=== PATIENT | female | born 1985 | race Caucasian/White ===

== ENCOUNTER 2017-07-19 10:11 | Inpatient (IN) | payer OTHER ==
[~2017-07-19] VITALS: Ht 154.9 cm; Wt 59.0 kg
[2017-07-19 15:22] LABS: ABSOLUTE BASOPHIL COUNT 0 /CUMM (0.0-0.2); ABSOLUTE EOSINOPHIL COUNT 0.1 /CUMM (0.0-0.7); ABSOLUTE GRANULOCYTE CT 8.1 /CUMM (1.4-6.5); ABSOLUTE LYMPH COUNT 2.9 /CUMM (1.2-3.4); ABSOLUTE MONOCYTE COUNT 0.8 /CUMM (0.10-0.60); BASOPHIL % 0.3 % (0.0-2.0); EOSINOPHIL % 0.5 % (0-5); GRANULOCYTE % 68.2 % (42.2-75.2); HEMATOCRIT 33.6 % (37-47); MEAN CORPUSCULAR HGB 29.3 PG (27.0-31.0); MEAN CORPUSCULAR VOLUME 88.6 FL (81.0-99.0); MEAN PLATELET VOLUME 9.3 FL (7.4-10.4); PLATELET COUNT 231 /CUMM (130-400); RBC DISTRIBUTION WIDTH 14.3 % (11.5-14.5); RED BLOOD CELL CT 3.79 /CUMM (4.20-5.40); WHITE BLOOD CELL COUNT 11.8 /CUMM (4.8-10.8)
--- NOTE | 2017-07-19 15:54 | History & Physical ---
General Information and HPI MD Statement: I have seen and personally examined DG SALCIDO and documented this H&P. The patient is a 31 year old female at [39] weeks and [2] days gestation who presented with a chief complaint of [CTXS]. Source of Information: patient Exam Limitations: no limitations History of Present Illness: 31yo, at 39 2/7wks, c/o ctxs since AM, getting closer and stronger. came to L+D for evaluation, initila exam was 2 cm dilated, then progress to 3cm, then 5 cm, pt admitted for labor. care started at 7 + wks, uncomplicated thus far. GBS negative Allergies/Medications Allergies: Coded Allergies: No Known Allergies (07/19/17) PER KATHY IN CBC. 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 History : 2 Para: 1 Last Menstrual Period: 10/17/2016 Estimated Delivery Date: 07/24/2017 Past organ recovery coordinator History: non-contributory Past Pregnancies Past Pregnancies: Date of Delivery: 01/30/2013 Gestational Age: 40 wks Weight: 5lb8oz Type of Delivery: vaginal Anesthesia: none Complications: none Medical History Blood Transfusion Hx: No Neurological: NONE EENT: NONE Cardiovascular: NONE Respiratory: NONE Gastrointestinal: NONE Hepatic: NONE Renal: NONE Musculoskeletal: NONE Psychiatric: NONE Endocrine: NONE Blood Disorders: NONE Cancer(s): NONE 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 Home Smoking Status: Never Smoked ETOH Use: denies use Illicit Drug Use: denies illicit drug use Review of Systems Review of Systems Constitutional: Reports: no symptoms. EENTM: Reports: no symptoms. Cardiovascular: Reports: no symptoms. Respiratory: Reports: no symptoms. GI: Reports: no symptoms. Genitourinary: Reports: see HPI. Musculoskeletal: Reports: no symptoms. Skin: Reports: no symptoms. Neurological/Psychological: Reports: no symptoms. Hematologic/Endocrine: Reports: no symptoms. Immunologic/Allergic: Reports: no symptoms. All Other Systems: Reviewed and Negative Date of LMP: 10/17/16 Post Menopausal: No Exam & Diagnostic Data Last 24 Hrs of Vital Signs/I&O Intake & Output 07/19 1600 07/19 0800 07/19 0000 Intake Total Output Total Balance Patient 58.967 kg Weight Obstetric Exam Wgt Gained During : 35 lb Pelvimetry: tested 5lb8 oz Dilation (cm): 5 Effacement (%): 80 Station: -2 Membranes: intact Fluid: unknown Fundal Height (cm): 39 Multiple Gestation? No Contractions: q 4-5 min Infant #1 - FHR Baseline: 130 Category: 1 Estimated Weight: 3200g Presentation: vertex Patient for Induction? No Physical Exam: VSS General : NAD Abdomen: gravid, soft, nontender. ext: DCT (-) Labs Blood Type & Rh: A positive Antibody Screen: negative Hct/Hgb & Platelets #1: 12.2/39%,PLT [id number] Hct/Hgb & Platelets #2: 10.8/35.3%,[id number] Rubella: immune VDRL #1: negative VDRL #2: negative HbsAg: negative HIV #1: negative HIV #2 negative 1 Hr P Group B Strep: negative Initial Ultrasound: IUP at 7+ wks Anatomy Ultrasound: nl Genetic Testing: declined Last 24 Hrs of Labs/[place]: Laboratory Tests 07/19/17 1450: CBC w Diff NO MAN DIFF REQ, RBC 3.79 L, MCV 88.6, MCH 29.3, MCHC 33.0, RDW 14.3 , MPV 9.3, Gran % 68.2, Lymphocytes % 24.1, Monocytes % 6.9, Eosinophils % 0.5, Basophils % 0.3, Absolute Granulocytes 8.1 H, Absolute Lymphocytes 2.9, Absolute Monocytes 0.8 H, Absolute Eosinophils 0.1, Absolute Basophils 0 07/19/17 1035: Urine Color YEL, Urine Clarity HAZY H, Urine pH 6.0, Ur Specific Solomon >= 1.030, Urine Protein NEG, Urine Ketones NEG, Urine Nitrite NEG, Urine Bilirubin NEG, Urine Urobilinogen 0.2, Ur Leukocyte Esterase SMALL H, Ur Microscopic SEDIMENT EXAMINED, Urine RBC RARE, Urine WBC 1-3 H, Ur Epithelial Cells PACKD H, Urine Bacteria MANY H, Urine Mucus RARE, Urine Hemoglobin NEG, Urine Glucose NEG Microbiology 07/19 1504 URINE ROUT: Urine Culture - COLB Assessment/Plan Assessment/Plan: 31yo, 39 2/7wks labor 1. admit pt, admission labs 2. pain management as needed 3. mnonitor closely As Ranked By This Provider Problem List: 1. Core Measures Venous Thromboembolism VTE Risk Factors / No Mechanical VTE Prophylaxis d/t LowRisk-No Interven Req'd No VTE Pharm Prophylaxis d/t LowRisk-No Interven Req'd Attending MD Review Statement Attending Statement Attending MD Statement: examined this patient, discussed with family, discussed w/nursing
--- NOTE | 2017-07-19 16:49 | PN- OBGYN ---
Surgical Brief Attending Note Brief Attending Note: called by nurse, FH decles to 60 , last 2 min, then return to 90, then return to baseline 120, total decles time was 5 min. cervix 10/100%/0-+1 trail of push,but pt had minimal effect, will allow labor down. monitor closely
--- NOTE | 2017-07-19 18:14 | Labor & Delivery Summary ---
Delivery Summary Vaginal Delivery: Vaginal: vertex Episiotomy/Lacerations: Episiotomy/Lacerations: none Placenta: Placenta: spontanteous, normal, 3 vessel Anesthesia: EPIDURAL Baby's Weight: 3190G Apgars - 1 Min: 9 Apgars - 5 Min: 9 Additional Comments: Patient fully dilated, pushed well, spontaneous delivered a viable male infant in cephalic presentation, ADELAIDA position, head delivered atraumatically ,followed by shoulder and rest of the body without difficulties, baby vigorous and cried, place on mother's chest, cord clamped and cut. Placenta delivered spontaneously , intact, three-vessel cord. Perineum intact, EBL 200 mL. Patient tolerated the procedure well , lap and instruments counts were correct, patient was in recovery room in stable condition.
[2017-07-20 08:42] LABS: ABSOLUTE BASOPHIL COUNT 0 /CUMM (0.0-0.2); ABSOLUTE EOSINOPHIL COUNT 0 /CUMM (0.0-0.7); ABSOLUTE GRANULOCYTE CT 11.1 /CUMM (1.4-6.5); ABSOLUTE LYMPH COUNT 1.7 /CUMM (1.2-3.4); ABSOLUTE MONOCYTE COUNT 0.9 /CUMM (0.10-0.60); BASOPHIL % 0.1 % (0.0-2.0); EOSINOPHIL % 0.1 % (0-5); GRANULOCYTE % 81.2 % (42.2-75.2); HEMATOCRIT 29.3 % (37-47); MEAN CORPUSCULAR HGB 29.7 PG (27.0-31.0); MEAN CORPUSCULAR HGB CONC 33.3 G/DL (33.0-37.0); MEAN CORPUSCULAR VOLUME 89.1 FL (81.0-99.0); MEAN PLATELET VOLUME 9.6 FL (7.4-10.4); PLATELET COUNT 215 /CUMM (130-400); RBC DISTRIBUTION WIDTH 14.5 % (11.5-14.5); RED BLOOD CELL CT 3.29 /CUMM (4.20-5.40); WHITE BLOOD CELL COUNT 13.7 /CUMM (4.8-10.8)
--- NOTE | 2017-07-20 10:20 | PN- Post Delivery/GYN ---
Subjective Subjective: doing well, no complaints Review of Systems Constitutional: Reports: no symptoms. Cardiovascular: Reports: no symptoms. Respiratory: Reports: no symptoms. Gastrointestinal: Reports: no symptoms. Genitourinary: Reports: see HPI. Hematologic/Endocrine: Reports: no symptoms. Immunologic/Allergic: Reports: no symptoms. All Other Systems: Reviewed and Negative Objective Last 24 Hrs of Vital Signs/I&O VSS Physical Exam: VSS CV RRR Lungs CTA B/L Abdomen: soft, nontender, uterus firm ,fundus below umbilicus, lochia mild Ext: DCT (-) Current Medications: Current Medications Sig/Nanette Start time Last Medication Dose Route Stop Time Status Admin Acetaminophen 650 MG Q4P PRN 07/19 181 AC PO Bupivacaine HCl 10 ML .STK-MED ONE 07/19 1745 DC EPID 07/19 174 Docusate Sodium 100 MG BID PRN 07/19 181 AC PO Hydroxyzine HCl 100 MG ONCE PRN 07/19 1400 DC PO Ibuprofen 800 MG Q6P PRN 07/19 181 AC 07/20 PO 0837 Ketorolac 30 MG ONCE ONE 07/19 1900 DC 07/19 Tromethamine IV 07/19 1901 1900 Lactated Ringer's 1,000 ML Q8H 07/19 1445 DC 07/19 IV 1705 Morphine Sulfate 10 MG ONCE PRN 07/19 1400 DC IM Oxycodone/ 1 TAB Q3P PRN 07/19 1815 AC 07/20 Acetaminophen PO 0850 Oxytocin 20 UNITS Q5H 07/19 1815 DC 07/19 Lactated Ringer's 1,000 ML IV 07/19 2314 1800 Last 24 Hrs of Labs/[place]: Laboratory Tests 07/20/17 0753: CBC w Diff NO MAN DIFF REQ, RBC 3.29 L, MCV 89.1, MCH 29.7, MCHC 33.3, RDW 14.5 , MPV 9.6, Gran % 81.2 H, Lymphocytes % 12.2 L, Monocytes % 6.4, Eosinophils % 0.1, Basophils % 0.1, Absolute Granulocytes 11.1 H, Absolute Lymphocytes 1.7, Absolute Monocytes 0.9 H, Absolute Eosinophils 0, Absolute Basophils 0 07/19/17 1450: CBC w Diff NO MAN DIFF REQ, RBC 3.79 L, MCV 88.6, MCH 29.3, MCHC 33.0, RDW 14.3 , MPV 9.3, Gran % 68.2, Lymphocytes % 24.1, Monocytes % 6.9, Eosinophils % 0.5, Basophils % 0.3, Absolute Granulocytes 8.1 H, Absolute Lymphocytes 2.9, Absolute Monocytes 0.8 H, Absolute Eosinophils 0.1, Absolute Basophils 0 07/19/17 1035: Urine Color YEL, Urine Clarity HAZY H, Urine pH 6.0, Ur Specific [place] >= 1.030, Urine Protein NEG, Urine Ketones NEG, Urine Nitrite NEG, Urine Bilirubin NEG, Urine Urobilinogen 0.2, Ur Leukocyte Esterase SMALL H, Ur Microscopic SEDIMENT EXAMINED, Urine RBC RARE, Urine WBC 1-3 H, Ur Epithelial Cells PACKD H, Urine Bacteria MANY H, Urine Mucus RARE, Urine Hemoglobin NEG, Urine Glucose NEG Microbiology 07/19 1600 URINE ROUT: Urine Culture - RES Assessment/Plan Assessment/Plan 31yo, s/p ,PPD#1 1. encourage ambualtion and 2. RT PP care Problem List: 1. Attending MD Review Statement Attending Statement Attending MD Statement: examined this patient, discussed with family, discussed with nursing
[2017-07-21] MEDS ORDERED: IBUPROFEN800 M1 PO (08:19)
--- NOTE | 2017-07-21 09:18 | PN- OBGYN ---
See Addendum Surgical Brief Attending Note Brief Attending Note: PPD#2 pt is resting in bed, no complaints, tolerate diet, void without difficulties PE: VSS CV RRR Lungs CTA B/L Abdomen: soft, nontender, uterus firm, fundus below umbilicus. lochia mild Ext: DCT (-) A/P: 34yo, s/p , PPD#2 1. encourage ambualtion and 2. RT PP care 3. will d/c home, f/u in office in 2wks and 6 wks, discharge instructions given.
== END 2017-07-21 12:00 | DRG 560 ==
LOC: CBCO 10:11 → GNO 13:37 → CBCO 07-24 08:00
PROVIDERS: Obstetrics & Gynecology
PROC: 10E0XZZ Delivery of Products of Conception, External Approach (ICD-10-PCS; principal; 2017-07-19)
DX: O80 Encounter for full-term uncomplicated delivery (principal); Z3A.39 39 weeks gestation of pregnancy; Z37.0 Single live birth
CPT/HCPCS: GNOP; GNOS; 81001; 87086; G0378; G0463; J1885; J7120